=== PATIENT | male | born 1930 | race African-American/Black ===

== ENCOUNTER 2016-06-13 07:47 | Day surgery (SDC) | payer OTHER, BC ==
[2016-06-10 12:01] VITALS: BMI 18.3
[2016-06-13 08:19] LABS: BASOPHIL 1.1 % (0-2.0); EOSINOPHIL 2.2 % (0-4.5); MCH 30.6 pg (25.7-33.7); MCHC 32.9 g/dl (32.0-35.9); MEAN CELL VOLUME 93.2 fl (80-96); MEAN PLT VOLUME 7.3 fl (7.5-11.1); NEUTROPHILS 60.9 % (42.8-82.8); PLATELET COUNT 401 K/MM3 (134-434); RDW 15.8 % (11.9-15.9); WHITE BLOOD COUNT 3.7 K/mm3 (4.0-10.0)
[2016-06-13 08:34] LABS: INR 1.1 (0.82-1.09); PROTHROMBIN TIME (PATIENT) 12.1 SEC (9.98-11.88)
[2016-06-13 15:46] VITALS: BP 134/63; PULSE 63; TEMP 97.9
--- NOTE | 2016-06-15 12:57 | PATH ---
Surgical Pathology Report Patient Name: KING HARO [facility]. Rec. #: [id number] /Age/Gender: 1930 (Age: 85) / M Account: [id number] Location: RADIOLOGY Taken: 06/13/2016 Received: 06/13/2016 Reported: 06/15/2016 Physicians: Timothy Stokes M.D. Specimen(s) Received LEFT RENAL BIOPSY Clinical History 85-year-old male with enhancing left upper renal pole mass Rule out RCC Final Diagnosis KIDNEY, LEFT UPPER POLE, NEEDLE CORE BIOPSY: LOW GRADE ONCOCYTIC RENAL NEOPLASM. Comment: Sections reveal a proliferation of cells with eosinophilic cytoplasm and low grade nuclei. Immunohistochemical stains performed at [place], [place] ([id number]) and interpreted at [facility] show the following results: The neoplastic cells stain with PAX8, E-Cadherin, CD10, and AMACR. The cells do not stain with RCC, CK7, or vimentin. The findings are not completely specific. The lesion may represent an oncocytoma. However, a variant of renal cell carcinoma cannot be completely excluded on this limited core biopsy and excision of the lesion for full histologic evaluation may be useful if clinically indicated. This case was discussed with Dr. Sav kennedy for Dr. Cheatham on June 15, 2016. Electronically Signed Damián Rodgers M.D. Gross Description Received in formalin labeled "left renal biopsy," are 4 rosa, cylindrical portions of soft tissue ranging from 0.3-1.3 cm in length and averaging 0.1 cm in diameter. The specimens are submitted in toto in one cassette. /06/13/201606/13/2016
== END 2016-06-13 16:09 | disposition home or self-care (01) ==
LOC: JRADIR 07:47
PROVIDERS: ATTEND Urology
PROC: BT42ZZZ Ultrasonography of Left Kidney (ICD-10-PCS; principal; 2016-06-13)
PROC: 0TB43ZX Excision of Left Kidney Pelvis, Percutaneous Approach, Diagnostic (ICD-10-PCS; 2016-06-13)
DX: D41.02 Neoplasm of uncertain behavior of left kidney (principal)
CPT/HCPCS: 36415; 50200; 76098-TC; 77012-TC; 85025; 85610; 87899; 88305-TC